=== PATIENT | male | born 1940 | race Caucasian/White ===

== ENCOUNTER → 2016-04-26 | Outpatient (CLI) | payer OTHER ==
--- NOTE | 2016-04-26 14:51 | US ---
Ultrasound Venous Duplex/Doppler left Leg History: Pain and swelling. Findings: Ultrasound venous duplex and Doppler imaging of the common femoral vein, femoral vein, pop liteal vein, calf veins, greater saphenous vein origin, and contralateral common femoral vein demonst rates normal compressibility, color flow, and Doppler flow without deep venous thrombosis. Left popliteal fossa 4.4 x 2.7 x 1 cm Lebron's cyst. Impression: 1. Left Lebron's cyst. 2. No deep venous thrombosis left leg.
--- NOTE | 2016-04-26 15:31 | DX ---
Knee 3 Views Left History: Pain Comparison exam: None available. Findings: No fracture or joint effusion. Marked narrowing of the patellofemoral joint, especially laterally, is compatible with advanced osteo arthritis. Impression: Advanced patellofemoral osteoarthritis.
== END ==
LOC: FIMAGING 09:58
PROVIDERS: ATTEND Internal Medicine
DX: M17.12 Unilateral primary osteoarthritis, left knee (principal); M71.22 Synovial cyst of popliteal space [Baker], left knee

== ENCOUNTER → 2017-02-15 | Outpatient (CLI) | payer OTHER, MEDICARE | LOC: FIMAGING 15:31 | PROVIDERS: ATTEND Internal Medicine | DX: M79.604 Pain in right leg (principal) ==